=== PATIENT | male | born 1925 | race Caucasian/White ===

== ENCOUNTER → 2016-05-06 | Outpatient (CLI) | payer OTHER ==
[~2016-05-06] MED LIST: ALL300 PO; AMLO5TAB2 PO; ASPI81TA57 PO; CLOP1TAB15 PO; ISOS60TA25 PO; LOSA100T33 PO; METO50TA16 PO; MULT-190 PO; NTRGSL/4 UT; PRAV80TA2 PO; TMPOPS15; ZNTT/150 PO
[2016-05-06 17:54] LABS: BLOOD UREA NITROGEN 34 mg/dl (7-18); BUN/CREATININE RATIO 24.1 (10-20); CALCIUM 9.3 mg/dl (8.5-10.1); CARBON DIOXIDE 32 mmol/L (21-32); CHLORIDE 107 mmol/L (98-107); GLUCOSE 88 mg/dl (70-99); POTASSIUM 3.9 mmol/L (3.5-5.1); SODIUM 143 mmol/L (136-145)
== END | disposition home or self-care (01) ==
LOC: C.LABPVFM 14:45
PROVIDERS: ATTEND Family Medicine
DX: K44.9 Diaphragmatic hernia without obstruction or gangrene (principal)